=== PATIENT | male | born 1940 | race Caucasian/White ===

== ENCOUNTER 2016-10-18 12:45 | Inpatient (IN) | payer OTHER, BC ==
[2016-10-18 13:03] VITALS: BMI 28.9
--- NOTE | 2016-10-18 13:08 | PDOC ---
History of Present Illness - History of Present Illness Initial Comments: 10/18/16 14:06 The patient is a 76 year old male with a past medical history of HTN, HLD, colon CA s/p resection, presents to the emergency department with a complaint of right sided weakness since this morning. Patient last night had gone to bed in his usual state of health. This morning when the patient woke up he found weakness in his right arm and right leg. Patient had difficulty tieing his shoes , buttoning his shirt and reported very clumsy while walking. Patient had gone to [facility] and was referred to an Neurologist who refered the patient to the ED. Denies numbness or tingling. Denies dizziness, nausea or vomiting. Denies headache, double vision or blurry vision. Denies chest pain, shortness of breath , palpitations. Denies neck pain back pain. Denies abdominal pain, diarrhea , hematochezia or constipation. PMD: [facility]: Cell: <Vince Alvarado - Last Filed: 10/18/16 16:21> <Syed Pan - Last Filed: 10/21/16 19:37> - General Chief Complaint: Weakness Stated Complaint: WEAKNESS, PCP SENT Time Seen by Provider: 10/18/16 13:08 NIH Stroke Scale - Last Known Well Date/Time & Onset Date Last Known Well: 10/17/16 Time Last Known Well: 20:00 - Initial Evaluation Level of consciousness: Alert Ask patient the month and their age: Answers both correctly Ask patient to open & close eyes; make fist and let go: Obeys both correctly Best gaze (horizontal eye movement): Normal Visual field testing: No visual field loss Facial paresis (Show teeth/raise eyebrows/close eyes tight): Normal symmetrical movement Motor Function: Left Arm: Normal Motor Function: Right Arm: Normal (extends arm 90 (or 45) degrees for 10 seconds without drift Motor Function: Left Leg: Normal (extends leg 30 degrees for 5 seconds without drift) Motor Function: Right Leg: Normal (extends leg 30 degrees for 5 seconds without drift) Limb Ataxia: Present in one limb Sensory(Use pinprick test arms,legs,trunk,face/side to side): Normal Best language (Describe picture, name items, read sentences): No Aphasia Dysarthria (read several words): Normal articulation Extinction and Inattention: No abnormality - Total Score NIH Stroke Scale Score: 1 <Syed Pan - Last Filed: 10/21/16 19:37> tPA Exclusion Checklist 0-3hr - Time Elapsed Date last known well: 10/17/16 Time last known well: 20:00 Elaspsed time: 3 Day(s) and 23 Hour(s) and 35 Minutes - Thrombolytic Therapy Candidate Is the patient eligible for Thrombolytic Therapy?: No - Ineligibility reason(s) Reasons No tPA given: Outside of window - delayed arrival <Syed Pan - Last Filed: 10/21/16 19:37> Past History <Vince Alvarado - Last Filed: 10/18/16 16:21> - Past Medical History Cancer: Yes (COLON) HTN: Yes Hypercholesterolemia: Yes - Surgical History GI Surgery: Yes (PARTIAL COLON REMOVAL) - Psycho/Social/Smoking Cessation Hx Suicidal Ideation: No Smoking History: Never smoked <Syed Pan - Last Filed: 10/21/16 19:37> - Past Medical History Allergies/Adverse Reactions: Allergies Allergy/AdvReac Type Severity Reaction Status Date / Time No Known Allergies Allergy Verified 10/18/16 12:55 Home Medications: Ambulatory Orders Enalapril Maleate [Vasotec -] 10 mg PO DAILY 10/18/16 Review of Systems - Review of Systems Able to Perform ROS?: Yes Comments:: 10/18/16 14:06 CONSTITUTIONAL: No reported: Fever, Chills, Diaphoresis, Generalized Weakness, Malaise, Loss of Appetite HEENT: No reported: Rhinorrhea, Nasal Congestion, Throat Pain, Throat Swelling, Difficulty Swallowing, Mouth Swelling, Ear Pain, Eye Pain, Visual Changes CARDIOVASCULAR: No reported: Chest Pain, Syncope, Palpitations, Irregular Heart Rate, Lightheadedness, Peripheral Edema RESPIRATORY: No reported: Cough, Shortness of Breath, SOB with Exertion, Orthopnea, Wheezing , Stridor, Hemoptysis GASTROINTESTINAL: No reported: Abdominal pain, Abdominal Distension, Nausea, Vomiting, Diarrhea, Constipation, Melena, Hematochezia GENITOURINARY: No reported: Dysuria, Frequency, Urgency, Hesitancy, Flank Pain, Genital Pain MUSCULOSKELETAL: No reported: Myalgia, Arthralgia, Joint Swelling, Back pain, Neck Pain SKIN: No reported: Rash, Itching, Pallor HEMEATOLOGIC/IMMUNOLOGIC: No reported: Easy Bleeding, Easy Bruising, Lymphadenopathy, Frequent infections ENDOCRINE: No reported: Unexplained Weight Gain, Unexplained Weight Loss, Heat Intolerance , Cold Intolerance NEUROLOGIC: Reports: Right leg and arm weakness, Unsteady Gait No reported: Headache, Paresthesias, Vertigo, Lightheadedness, Seizure, Mental Status Changes, Incontinence PSYCHIATRIC: No reported: Anxiety, Depression <Vince Alvarado - Last Filed: 10/18/16 16:21> *Physical Exam - Vital Signs Last Vital Signs Temp Pulse Resp BP Pulse Ox 97.6 F 62 19 155/85 98 10/18/16 12:55 10/18/16 12:55 10/18/16 12:55 10/18/16 12:55 10/18/16 12:55 - Physical Exam Comments: 10/18/16 14:06 GENERAL: The patient is awake, alert, and fully oriented, Nontoxic - in no acute distress. HEAD: Normocephalic, atraumatic. EYES: extraocular movements intact, sclera anicteric, conjunctiva clear. ENT: Normal voice, Moist mucous membranes. Otis aid in L ear NECK: Normal range of motion, supple LUNGS: Breath sounds equal, clear to auscultation bilaterally. No wheezes, no rhonchi, no rales. HEART: Regular rate and rhythm, normal S1 and S2 without murmur, rub or gallop. ABDOMEN: Soft, nontender, normoactive bowel sounds. No guarding, no rebound. . No CVA tenderness EXTREMITIES: Normal range of motion, no edema. No clubbing or cyanosis. No cords, erythema, or tenderness. NEUROLOGICAL: No facial assymetry, Normal speech, PSYCH: Normal mood, normal affect. SKIN: Warm, Dry, normal turgor, NEURO: Mental status: The patient is oriented x3. Cranial nerves: Cranial nerves II through XII are intact Motor: The upper extremities are 5 over 5 in all muscle groups. The lower extremities are 5 over 5 in all muscle groups. Negative pronator drift Sensation: Sensation is intact to light touch throughout. romberg negative Cerebellar: [id number] is abnormal RUE extremities. [id number] is normal in both lower extremities. rapid alternating movements are abnormal on RUE, Reflexes: 2+ and symmetric in the upper and lower extremities. Gait: widebased gait. <Vince Alvarado - Last Filed: 10/18/16 16:21> - Vital Signs Last Vital Signs Temp Pulse Resp BP Pulse Ox 97.6 F 62 19 155/85 98 10/18/16 12:55 10/18/16 12:55 10/18/16 12:55 10/18/16 12:55 10/18/16 12:55 <Syed Pan - Last Filed: 10/21/16 19:37> Heart Score/ECG Review - ECG Impressions Comment:: 10/18/16 14:11 Twelve-lead EKG was performed and reviewed by me. There is normal sinus rhythm with a normal rate. rate of 69 Left axis deviation The intervals are normal. There are no ST or T wave abnormalities. <Syed Pan - Last Filed: 10/21/16 19:37> ED Treatment Course - LABORATORY CBC & Chemistry Diagram: 10/18/16 13:35 10/18/16 13:35 - ADDITIONAL ORDERS Additional order review: 10/18/16 13:35 RBC 5.06 MCV 89.7 MCHC 33.4 RDW 13.4 MPV 8.9 Neutrophils % 71.5 Lymphocytes % 16.3 Monocytes % 9.6 Eosinophils % 2.3 Basophils % 0.3 - RADIOLOGY Radiology Studies Ordered: 10/18/16 14:06 CHEST X RAY Impression: No acute Disease Reported by Qamar Ba HEAD CT Impression: Moderate atrophy and mild chronic microvascular ischemic changes with out evidence of acute intracranial pathology Reported by Frankie Miranda <Vince Alvarado - Last Filed: 10/18/16 16:21> - LABORATORY CBC & Chemistry Diagram: 10/19/16 05:35 10/19/16 05:35 <Syed Pan - Last Filed: 10/21/16 19:37> Medical Decision Making - Medical Decision Making 10/18/16 14:42 Neurology: Chidi Hernandez Office number called 14:42, will be paged PMD: [facility]: called 14:14, told he was in the hospital to over head page. Over head paged 14:45 PMD: [facility] R[facility] call back 14:45, case discussed. Neurology: Chidi Hernandez Office number called 15:13, will be paged Neurology: Lindsay Castillo returned call at 15:15, case discussed <Vince Alvarado - Last Filed: 10/18/16 16:21> - Medical Decision Making 10/18/16 14:12 76-year-old gentleman history of hypertension, colon cancer status post colon resection, presents with complaint of right-sided weakness upon awakening this morning - patient went to urgent care who directed them to the neurologist who sent him to the emergency department. The patient has no other complaints, on exam the patient's strength seems intact and symmetric however his fine motor skills seem abnormal with abnormal rapid alternating movements of the right hand as well as abnormal finger-nose in the right side, and he has a wide-based gait. Suspect possible cerebellar infarct The patient's CT of the head did not reveal anything acute. We'll give the patient aspirin We'll admit the patient further management of his symptoms and possible MRI. 10/18/16 14:41 labs unremarkble will admit for further management will page dr. rutherford 10/18/16 15:[address] rutherford - requested observation under hospitalist service. spoke to Veronica from Hospitalist service - agree with observation, under dr. doug ashraf. Case discussed in detail with admitting physician including history, physical exam and ancillary studies. Admitting physician has assumed care for the patient, will follow all pending diagnostics and will complete the evaluation and treatment. 10/18/16 15:[address] Pittman agree with management rewquested giving the aptient some asa and liptor MRI ordered <Syed Pan - Last Filed: 10/21/16 19:37> *DC/Admit/Observation/Transfer - Attestations Scribe Attestion: 10/18/16 16:23 Documentation prepared by Vince Alvarado, acting as medical office supervisor for Syed Pan MD <Vince Alvarado - Last Filed: 10/18/16 16:21> - Discharge Dispostion Admit: Yes <Syed Pan - Last Filed: 10/21/16 19:37> Diagnosis at time of Disposition: Right arm weakness - Referrals
[2016-10-18 13:48] LABS: BASOPHIL 0.3 % (0-2.0); EOSINOPHIL 2.3 % (0-4.5); MCH 29.9 pg (25.7-33.7); MCHC 33.4 g/dl (32.0-35.9); MEAN CELL VOLUME 89.7 fl (80-96); MEAN PLT VOLUME 8.9 fl (7.5-11.1); NEUTROPHILS 71.5 % (42.8-82.8); PLATELET COUNT 158 K/MM3 (134-434); RDW 13.4 % (11.9-15.9); WHITE BLOOD COUNT 7.6 K/mm3 (4.0-10.0)
[2016-10-18] MEDS ORDERED: ASPIRIN 81 MG CHEWABLE TABLETS PO ONE ×2 (14:13→14:14)
[2016-10-18 14:14] LABS: ALBUMIN 3.9 g/dl (3.4-5.0); ANION GAP 9 (8-16); CO2 28 mmol/L (21-32); GLUCOSE,RANDOM 97 mg/dL (74-106)
[2016-10-18] MEDS ORDERED: ASPIRIN 81 MG CHEWABLE TABLETS ONE (14:15)
[2016-10-18] MEDS: ASPIRIN 81 MG CHEWABLE TABLETS PO ONE ×2 (14:22→14:23)
[2016-10-18 14:23] LABS: INR 1.09 (0.82-1.09)
[2016-10-18 14:26] LABS: ALK PHOS 90 U/L (45-117); BILIRUBIN,TOTAL 0.9 mg/dL (0.2-1.0); CREATININE 1.1 mg/dL (0.7-1.3); SGOT/AST 17 U/L (15-37); SGPT/ALT 23 U/L (12-78); TOT PROT 7.3 g/dl (6.4-8.2); TROPONIN I < 0.02 ng/ml (0.00-0.05)
--- NOTE | 2016-10-18 14:34 | EKG ---
Test Reason : Blood Pressure : / mmHG Vent. Rate : 076 BPM Atrial Rate : 076 BPM P-R Int : 154 ms QRS Dur : 090 ms QT Int : 396 ms P-R-T Axes : 050 -69 037 degrees QTc Int : 445 ms NORMAL SINUS RHYTHM WITH SINUS ARRHYTHMIA LEFT AXIS DEVIATION ABNORMAL ECG WHEN COMPARED WITH ECG OF 27-APR-2010 09:15, NO SIGNIFICANT CHANGE WAS FOUND Confirmed by KELSEY WHITE MD ([id number]) on 10/18/2016 2:33:57 PM Referred By: Confirmed By:KELSEY WHITE MD
[2016-10-18 14:40] LABS: URINE APPEARANCE CLEAR; URINE BILIRUBIN NEGATIVE (NEGATIVE); URINE BLOOD NEGATIVE (NEGATIVE); URINE COLOR YELLOW; URINE GLUCOSE (UA) NEGATIVE (NEGATIVE); URINE KETONE NEGATIVE (NEGATIVE); URINE LEUK ESTERASE NEGATIVE (NEGATIVE); URINE NITRITE NEGATIVE (NEGATIVE); URINE PROTEIN NEGATIVE (NEGATIVE); URINE UROBILINOGEN NEGATIVE E.U./dl (0.2-1.0)
[2016-10-18] MEDS ORDERED: ATORVASTATIN CA 40 MG TABLET (FP) PO ONE (15:15)
[2016-10-18] MEDS ORDERED: ATORVASTATIN CA 40 MG TABLET (FP) ONE (15:26)
[2016-10-18] MEDS ORDERED: ONDANSETRON 4 MG/2 ML VIAL IVPB PRN (16:11)
[2016-10-18] MEDS ORDERED: ACETAMINOPHEN 325 MG TABLET (FP) PO PRN (16:11)
[2016-10-18 16:41] LABS: CHOLESTEROL 172 mg/dL (50-200); LDL CHOLESTEROL (ONLY SJRH) 108 mg/dL (5-100)
--- NOTE | 2016-10-18 17:41 | HP ---
CHIEF COMPLAINT: Right sided weakness PCP: Dr. Rutherford HISTORY OF PRESENT ILLNESS: Mr. Hirsch is a 76 y/o male pt with a PMH of HTN who presents to the ED today complaining of right sided numbness and weakness since this morning. Pt. states that he was not experiencing these symptoms before he went to bed last night at approximately 00:00 10/18/16. When he woke up at 07:30, he noticed weakness in his right arm and leg. He reports that he feels unsteady on his feet because of his R lower leg weakness. He also states he is "having trouble holding onto things with his right hand". Pt. denies pain in his R arm or leg. Pt. denies previous stroke history. Pt. denies dizziness, light headedness, LOC, chest pain, palpitations, SOB, N/V/D. Pt. presents to the ED for further evaluation. ER course was notable for: (1) Negative CT scan; MRI ordered to r/o cerebellar stroke (2) EKG shows normal sinus rhythm with a regular rate, left axis deviation. No acute ischemic changes (3) LDL of 108, HDL 45, Triglyceride 278 (4) Troponin negative (5) NIHSS 1 during ED course. 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 He lives at home with his . Family History: Father: "Renal disease" Mother: "Peripheral arterial sclerosis" Allergies No Known Allergies Allergy (Verified 10/18/16 12:55) HOME MEDICATIONS: Home Medications Medication Instructions Recorded Enalapril Maleate [Vasotec -] 10 mg PO DAILY 10/18/16 REVIEW OF SYSTEMS CONSTITUTIONAL: Absent: fever, chills, diaphoresis, generalized weakness, malaise, loss of appetite, weight change HEENT: Absent: rhinorrhea, nasal congestion, throat pain, throat swelling, difficulty swallowing, mouth swelling, ear pain, eye pain, visual changes CARDIOVASCULAR: Absent: chest pain, syncope, palpitations, irregular heart rate, lightheadedness , peripheral edema RESPIRATORY: Absent: cough, shortness of breath, dyspnea with exertion, orthopnea, wheezing, stridor, hemoptysis GASTROINTESTINAL: Absent: abdominal pain, abdominal distension, nausea, vomiting, diarrhea, constipation, melena, hematochezia GENITOURINARY: Absent: dysuria, frequency, urgency, hesitancy, hematuria, flank pain, genital pain MUSCULOSKELETAL: Absent: myalgia, arthralgia, joint swelling, back pain, neck pain SKIN: Absent: rash, itching, pallor HEMATOLOGIC/IMMUNOLOGIC: Absent: easy bleeding, easy bruising, lymphadenopathy, frequent infections ENDOCRINE: Absent: unexplained weight gain, unexplained weight loss, heat intolerance, cold intolerance NEUROLOGIC: Present: RUE and RLE weakness and paresthesias, unsteady gait Absent: headache, dizziness, seizure, mental status changes, bladder or bowel incontinence PSYCHIATRIC: Absent: anxiety, depression, suicidal or homicidal ideation, hallucinations. PHYSICAL EXAMINATION GENERAL: Awake, alert, and fully oriented to person place and time, in no acute distress, sitting on the hospital bed; not using accessory muscles to breathe. HEAD: Normal with no signs of trauma. EYES: Pupils equal, round and reactive to light, extraocular movements intact, sclera anicteric, conjunctiva clear. No lid lag. EARS, NOSE, THROAT: Pt. 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 Ears normal, nares patent, oropharynx clear without exudates. Moist mucous membranes. NECK: Normal range of motion, supple without lymphadenopathy, JVD, or masses. LUNGS: Breath sounds equal, clear to auscultation bilaterally. No wheezes, and no crackles. No accessory muscle use. HEART: Regular rate and rhythm, normal S1 and S2 without murmur, rub or gallop. ABDOMEN: Midline surgical scar present. Soft, nontender, not distended, normoactive bowel sounds, no guarding, no rebound, no masses. No hepatomegaly or splenomegaly. MUSCULOSKELETAL: Normal range of motion at all joints. No bony deformities or tenderness. No CVA tenderness. UPPER EXTREMITIES: 2+ pulses, warm, well-perfused. No cyanosis. No clubbing. Cap refill <2 seconds. No peripheral edema. LOWER EXTREMITIES: 2+ pulses, warm, well-perfused. No calf tenderness. No peripheral edema. NEUROLOGICAL: (+) ataxia of the R arm. (+) dysdiadochokinesia of the right hand. Road Monkey strength 4/5 on the R, 5/5 on the left. Cranial nerves II-XII intact. (-) aphasia, (-) dysmetria. Gait not observed. RUE strength 5/5 B/L, RLE 5/5 B/L. Patellar reflexes are 2+. Sensation intact on the face and arms B/ L. PSYCHIATRIC: Cooperative. Good eye contact. Appropriate mood and affect. SKIN: Warm, dry, normal turgor, no rashes or lesions noted. Laboratory Results - last 24 hr 10/18/16 16:06 Triglycerides Cancelled Cholesterol Cancelled Total LDL Cholesterol Cancelled HDL Cholesterol Cancelled ASSESSMENT/PLAN: Problem List - Problem (1) Acute ischemic stroke Assessment/Plan: Pt. presents with new R arm weakness and dysdiadochokinesia; initial head CT is negative for stroke. MRI shows multiple acute strokes. Will make pt. a full admit. 1. MRI results: 1.1 cm acute non-hemorrhagic infarct seen with in the left posterior frontal lobe adjacent to and possibly involving the cortex Other findings include numerous bilateral cerebral punctate hemosiderin foci are seen consistent with chronic microbleeds. The majority of these chronic microbleeds are seen adjacent to the corticomedullary junction. there are several chronic microbleeds within the left thalamus and right basis pontis. This finding is better appreciated on the previous exam which included susceptibility weighted imaging. Case discused with Dr. Pittman. Agrees with restarting ASA 81mg even with report of microbleeds. Pt. is not a candidate for tPA at this time given his last known well is outside the 3-4.5 hour yadi. 2. Carotid US performed. Awaiting results 3. Neurology consulted. 4. Speech consult ordered; bedside swallow test was performed and pt. passed. 5. PT consult 6. Monitor on telemetry 7. Echocardiogram to be performed tomorrow. 8. Chemical DVT prophylaxis to start tomorrow. SCD's applied today 9. Full admit Code(s): I63.9 - CEREBRAL INFARCTION, UNSPECIFIED (2) HTN (hypertension) Assessment/Plan: Permissive HTN d/t ischemic stroke. Continue to monitor Continue with Enalapril Code(s): I10 - ESSENTIAL (PRIMARY) HYPERTENSION (3) Dyslipidemia Assessment/Plan: Pts. LDL's are slightly elevated. Given presenting symptoms will continue with atorvastatin. Low cholesterol/sodium diet Code(s): E78.5 - HYPERLIPIDEMIA, UNSPECIFIED (4) DVT prophylaxis Assessment/Plan: Chemical prophylaxis to start tomorrow. SCD's placed on pt. Code(s): OEX8159 - Visit type - Emergency Visit Emergency Visit: Yes ED Registration Date: 10/18/16 Care time: The patient presented to the Emergency Department on the above date and was hospitalized for further evaluation of their emergent condition. - New Patient This patient is new to me today: Yes Date on this admission: 10/18/16 - Critical Care Critical Care patient: No NIH Stroke Scale - Last Known Well Date/Time & Onset Date Last Known Well: 10/18/16 Time Last Known Well: 00:00 - Initial Evaluation Level of consciousness: Alert Ask patient the month and their age: Answers both correctly Ask patient to open & close eyes; make fist and let go: Obeys both correctly Best gaze (horizontal eye movement): Normal Visual field testing: No visual field loss Facial paresis (Show teeth/raise eyebrows/close eyes tight): Normal symmetrical movement Motor Function: Left Arm: Normal Motor Function: Right Arm: Normal (extends arm 90 (or 45) degrees for 10 seconds without drift Motor Function: Left Leg: Normal (extends leg 30 degrees for 5 seconds without drift) Motor Function: Right Leg: Normal (extends leg 30 degrees for 5 seconds without drift) Limb Ataxia: Present in one limb Sensory(Use pinprick test arms,legs,trunk,face/side to side): Normal Best language (Describe picture, name items, read sentences): No Aphasia Dysarthria (read several words): Normal articulation Extinction and Inattention: No abnormality - Total Score NIH Stroke Scale Score: 1
[2016-10-18] MEDS: DOCUSATE SODIUM 100 MG CAPSULE (FP) PO SCH (22:19)
[2016-10-19 07:02] LABS: BASOPHIL 0.2 % (0-2.0); MCHC 33.5 g/dl (32.0-35.9); MEAN CELL VOLUME 89.5 fl (80-96); MEAN PLT VOLUME 9.4 fl (7.5-11.1); NEUTROPHILS 64.9 % (42.8-82.8); PLATELET COUNT 150 K/MM3 (134-434); RDW 13.4 % (11.9-15.9); WHITE BLOOD COUNT 7.1 K/mm3 (4.0-10.0)
[2016-10-19 07:08] LABS: INR 1.1 (0.82-1.09); PROTHROMBIN TIME (PATIENT) 12.1 SEC (9.98-11.88)
[2016-10-19 07:46] LABS: ALBUMIN 3.7 g/dl (3.4-5.0); ALK PHOS 91 U/L (45-117); ANION GAP 10 (8-16); BILIRUBIN,TOTAL 1.2 mg/dL (0.2-1.0); CALCIUM 8.6 mg/dL (8.5-10.1); CO2 27 mmol/L (21-32); GLUCOSE,RANDOM 88 mg/dL (74-106); MAGNESIUM 2.2 mg/dL (1.8-2.4); SGOT/AST 18 U/L (15-37); SGPT/ALT 22 U/L (12-78); THYROID STIMULATING HORMONE 2.15 uIU/ml (0.358-3.74); TOT PROT 6.9 g/dl (6.4-8.2); TROPONIN I < 0.02 ng/ml (0.00-0.05)
[2016-10-19] MEDS: DOCUSATE SODIUM 100 MG CAPSULE (FP) PO SCH ×2 (09:17→22:16)
[2016-10-19] MEDS: ASPIRIN COATED 81 MG TABLET.EC PO SCH (09:18)
[2016-10-19] MEDS: ENALAPRIL MALEATE 10 MG TABLET (FP) PO SCH (09:18)
[2016-10-19] MEDS ORDERED: SODIUM CHLORIDE 1,000 ML IV STA (10:57)
--- NOTE | 2016-10-19 11:58 | CONSULT ---
Admitting History and Physical - Primary Care Physician PCP: Margaret Constantino - Admission History of Present Illness: New onset right sided weakness. History Source: Patient Limitations to Obtaining History: No Limitations - Smoking History Smoking history: Never smoked History - Admission Reason For Visit: WEAKNESS OF RIGHT UPPER EXTREMITY - Diagnostics X-ray: Report Reviewed CT Scan: Report Reviewed MRI: Report Reviewed - General Mental Status: Alert and Oriented, Awake and Alert, Able to Follow Commands Attention: Intact Ability to Follow Directions: Excellent Head/Neck Control: WFL - Hearing Hearing: Impaired, Both Hearing Aide: Yes With Patient: Yes Speech Evaluation - Communication Primary Language: [place] Oral Expression Ability: Yes: Mild Impairment - Speech Production Able to Make Needs Known: Yes: Mildly Impaired Intelligibility: Yes: WNL - Speech Characteristics Voice Loudness: Normal Voice Pitch: Yes: Normal Voice Phonatory-based Quality: Yes: Normal Speech Pattern: Normal Speech Clarity: < 100% Nasal Resonance: Normal Articulation: Yes: Precise - Language/Auditory Comprehension Follows: Yes: Complex Commands - Language/Verbal Expression Aphasia: Yes: Anomia (occasional) Able to Respond to Simple Queries: Yes: WNL Able to Communicate Wants and Needs: Yes: WNL Functional Communication Status: Yes: WNL - Memory/Perception MCFP Memory: Yes: WNL Short Term Memory: Yes: WNL - Swallow Evaluation/Bedside Assessment Current Nutritional Intake: Regular, Thin Liquids Oral Secretions: Yes: WFL Dentition: Yes: Adequate Facial Symmetry at Rest: Symmetrical Facial Symmetry on Retraction: Symmetrical Facial Movement: Controlled Sensation: Normal Against Resistance Opening: Normal Against Resistance Closing: Normal Pucker Lips: Normal Smile: Normal Lingual Movement: Normal Lingual Speed of Movement: Normal Lingual Movement Strgth Against Opposition: Normal Lingual Movement Characteristics: Normal Velopharyngeal Movement: Normal Laryngeal Elevation: WFL Laryngeal Movement: Able to Palpate Rate of Intake: WFL Bolus Size: WFL Labial Seal: WFL Chewing: WFL Oral Prep Time: WFL A-P Transit: WFL Pocketing: None Timing of Swallow: WFL Coughing/Throat Clear: No Change in Voice: No Recommendations - Speech Evaluation, Impression/Plan Impression: Mild hesitancy in word retrieval in propositional speech. O x 3. WExcellent auditory comprehension. Cognition grossly intact. Swallowing intact. - Disposition [facility] to[facility] (Excellent [facility] - Dysphagia Impressions/Plan Swallowing Skills: WFL Dysphagia Impressions: No Impairment *Silent aspiration: cannot be R/O at bedside - Recommendations Diet Consistency: Regular Medication Administration: Whole with water Liquids: Thin Liquids
--- NOTE | 2016-10-19 14:10 | PN ---
Physical Exam: SUBJECTIVE: Patient seen and examined at bedside. 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 He states that his leg feels the same. States that PT has been by to see him. OBJECTIVE: GENERAL: The patient is awake, alert, and fully oriented to person, place and time, in no acute distress. No use of accessory muscles to breathe. HEAD: Normal with no signs of trauma. EYES: PERRL, extraocular movements intact, sclera anicteric, conjunctiva clear. No ptosis. ENT: Hearing aids in place b/l. Ears normal, nares patent, oropharynx clear without exudates, moist mucous membranes. NECK: Trachea midline, full range of motion, supple. LUNGS: Breath sounds equal, clear to auscultation bilaterally, no wheezes, no crackles, no accessory muscle use. HEART: Regular rate and rhythm, S1, S2 without murmur, rub or gallop. ABDOMEN: Soft, nontender, nondistended, normoactive bowel sounds, no guarding, no rebound, no hepatosplenomegaly, no masses. EXTREMITIES: R hand mild swelling noted. 2+ pulses (radial and brachial). Warm, well-perfused. NEUROLOGICAL: (+) R arm ataxia. (+) dysdiadochokineasea. Office Admin strength R hand 1/ 5, L hand 5/5. Cranial nerves II through XII grossly intact. Normal speech, gait not observed. Sensation grossly intact b/l, patallar reflex 2+ b/l. PSYCH: Normal mood, normal affect. SKIN: Warm, dry, normal turgor, no rashes or lesions noted Active Medications Generic Name Dose Route Start Last Admin Trade Name Freq PRN Reason Stop Dose Admin Acetaminophen 650 mg 10/18/16 16:11 Tylenol - PO Q6H PRN FEVER OR PAIN Aspirin 81 mg 10/19/16 10:00 10/19/16 09:18 Ecotrin - PO 81 mg DAILY KATHERINE Administration Atorvastatin Calcium 40 mg 10/19/16 22:00 Lipitor - PO HS KATHERINE Docusate Sodium 100 mg 10/18/16 22:00 10/19/16 09:17 Colace - PO 100 mg BID KATHERINE Administration Enalapril Maleate 10 mg 10/19/16 10:00 10/19/16 09:18 Vasotec - PO 10 mg DAILY KATHERINE Administration Ondansetron HCl 4 mg 10/18/16 16:11 Zofran Injection IVPB Q6H PRN NAUSEA Imaging: CT Head (10/18/16): Moderate atrophy and mild chronic microvascular changes. No evidence of acute intracranial pathology. Correlate clinically. MRI Head (10/18/16): 1.1 cm acute non-hemorrhagic infarct seen with in the left posterior frontal lobe adjacent to and possibly involving the cortex.Other findings include numerous bilateral cerebral punctate hemosiderin foci are seen consistent with chronic microbleeds. The majority of these chronic microbleeds are seen adjacent to the corticomedullary junction. there are several chronic microbleeds within the left thalamus and right basis pontis. This finding is better appreciated on the previous exam which included susceptibility weighted imaging. Carotid US (10/18/16): No evidence of high grade carotid artery stenosis. Mild plaque formation at the level of the carotid artery bifurcations and common carotids. ASSESSMENT/PLAN: Pt. is a 76 y/o male with a PMH of HTN, HLD, Colon Cx s/p colectomy 2006, admitted with acute ischemic stroke of the left posterior frontal lobe. 1. Acute ischemic stroke: -- Pt. was not a candidate for tPA as given his last known well was outside the 3-4.5 hour yadi upon arrival to the ED. -- R arm weakness and dysdiadochokinesia worse compared to yesterday. 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 Will monitor. -- Chronic microbleeds seen on MRI. -- Echo results pending. -- Neurology consulted: case discussed with Dr. Pittman. Agrees with restarting ASA 81mg even with report of microbleeds. -- Speech consult appreciated: No swallow deficit, full diet and thin liquids. -- PT following. 2. HTN: -- Permissive HTN d/t ischemic stroke. Goal 150mmHg-180mmHg systolic per neurology. Continue to monitor. -- Continue with Enalapril. 3. Dyslipidemia: -- Pts. LDL's are slightly elevated. -- Given presenting symptoms will continue with atorvastatin. 4. Hx. of Colon Cx s/p colectomy 2006: -- Pt. is non-compliant with his regular follow up for management of his colon cancer history. -- Consult Dr. De La Rosa, oncology. -- Given uncertain nature of this pts stroke and poor compliance, will order CT scan of abdomen to look for mets when pt. is stable 5. DVT prophylaxis -- Lovenox 40 sq. SCD's placed on pt. F/E/N -- PO Fluids as tolerated -- Replete electrolytes as needed -- Low sodium, low cholesterol diet. Dispo: The case was discussed with Dr. Rutherford who will be taking over patient care. Hospitalist group signing off of the case. Please call if needing further assistance. --Pt. requires inpatient status. Full code Problem List - Problems (1) Acute ischemic stroke Code(s): I63.9 - CEREBRAL INFARCTION, UNSPECIFIED (2) HTN (hypertension) Code(s): I10 - ESSENTIAL (PRIMARY) HYPERTENSION (3) Dyslipidemia Code(s): E78.5 - HYPERLIPIDEMIA, UNSPECIFIED (4) DVT prophylaxis Code(s): ZCX4086 - Visit type - Emergency Visit Emergency Visit: Yes ED Registration Date: 10/19/16 Care time: The patient presented to the Emergency Department on the above date and was hospitalized for further evaluation of their emergent condition. - New Patient This patient is new to me today: No - Critical Care Critical Care patient: No - Discharge Referral Referred to [facility] Med P.C.: No
--- NOTE | 2016-10-19 15:11 | CON.NEURO ---
Consult Consult Specialty:: NEUROLOGY Reason for Consultation:: right side weakness - History of Present Illness History of Present Illness: 76 y/o male pt with a PMH of HTN who presents to the ED yesterday for right sided numbness and weakness since he woke up yesterday morning. Pt. states that he was not experiencing these symptoms before he went to bed last night at approximately 00:00 10/18/16. When he woke up at 07:30, he noticed weakness in his right arm and leg. Pt. denies previous stroke history. He is not on asa, plavix or other blood thinner. Pt. denies dizziness, light headeness, LOC, chest pain, palpitations, SOB. - History Source History Provided By: Patient, Medical Record Limitations to Obtaining History: No Limitations - Past Medical History Cardio/Vascular: Yes: HTN - Smoking History Smoking history: Never smoked - Social History Usual Living Arrangement: With Spouse Place of : [facility] History of Recent Travel: No Home Medications - Allergies Allergies/Adverse Reactions: Allergies Allergy/AdvReac Type Severity Reaction Status Date / Time No Known Allergies Allergy Verified 10/18/16 12:55 - Home Medications Home Medications: Ambulatory Orders Enalapril Maleate [Vasotec -] 10 mg PO DAILY 10/18/16 Review of Systems - Review of Systems Constitutional: reports: No Symptoms Eyes: reports: No Symptoms HENT: reports: No Symptoms Neck: reports: No Symptoms Cardiovascular: reports: No Symptoms Respiratory: reports: No Symptoms Gastrointestinal: reports: No Symptoms Genitourinary: reports: No Symptoms Neurological: reports: Pre-Existing Deficit (hearing decreased - device ear) Endocrine: reports: No Symptoms Hematology/Lymphatic: reports: No Symptoms Psychiatric: reports: No Symptoms Physical Exam-Neuro Vital Signs: Vital Signs Temperature 97.7 F 10/19/16 13:25 Pulse Rate 79 10/19/16 13:25 Respiratory Rate 20 10/19/16 13:25 Blood Pressure 153/81 10/19/16 13:25 O2 Sat by Pulse Oximetry (%) 98 10/19/16 08:00 Constitutional: Yes: No Distress, Calm Neck: Yes: Supple, Trachea Midline Cardiovascular: Yes: Regular Rate and Rhythm, S1, S2 Respiratory: Yes: Regular, CTA Bilaterally Gastrointestinal: Yes: Normal Bowel Sounds, Soft Renal/: Yes: WNL Musculoskeletal: Yes: WNL, Muscle Weakness Edema: No Psychiatric: Yes: Alert, Oriented Labs: INR, PTT INR 1.10 (0.82-1.09) 10/19/16 05:35 - Neuro Exam Level Of Consciousness: Yes: Oriented to Person, Oriented to Place, Oriented to Time Eyes: Yes: PERRLA Dominant Hand: Right Cranial Nerves II-XII Intact: Yes Gag: Present DTR's: 1+ Left Bicep, 1+ Right Bicep, 1+ Left Tricep, 1+ Right Tricep, 1+ Left Brachioradialis, 1+ Right Brachioradialis, 1+ Left Achilles, 1+ Right Achilles Babinski: Absent Response to light touch: Normal Response to pain prick: Normal Response to temperature: Normal Response to vibration: Normal Coordination: Normal: Finger to Nose (ataxia) Motor Strength: 3/5: Right Arm, 5/5: Right Leg, Left Leg, Left Arm (NIHS is 6p. 2p. RUE weakness. 1p RUE ataxia. 1p. RLE drift, 1pRLE ataxia. 1p dysarthria. mild) Gait: Ataxia Imaging - Results Cat Scan: Report Reviewed, Image Reviewed MRI: Report Reviewed, Image Reviewed Problem List - Problems (1) Acute ischemic stroke Code(s): I63.9 - CEREBRAL INFARCTION, UNSPECIFIED (2) Hemiparesis affecting dominant side as late effect of cerebrovascular accident Code(s): I69.359 - HEMIPLGA FOLLOWING CEREBRAL INFARCTION AFFECTING UNSP SIDE (3) Hemiparesis affecting right side as late effect of cerebrovascular accident Code(s): I69.351 - HEMIPLGA FOLLOWING CEREBRAL INFRC AFF RIGHT DOMINANT SIDE (4) Hemiparesis, acute Code(s): G81.90 - HEMIPLEGIA, UNSPECIFIED AFFECTING UNSPECIFIED SIDE (5) Ataxia following cerebral infarction Code(s): I69.393 - ATAXIA FOLLOWING CEREBRAL INFARCTION Assessment/Plan 76 y/o male pt with a PMH of HTN who presents to the ED yesterday for right sided numbness and weakness since he woke up yesterday morning. Pt. states that he was not experiencing these symptoms before he went to bed last night at approximately 00:00 10/18/16. When he woke up at 07:30, he noticed weakness in his right arm and leg. Pt. denies previous stroke history. He is not on asa, plavix or other blood thinner. Pt. denies dizziness, light headeness, LOC, chest pain, palpitations, SOB. MRI brain shows acute ischemic stroke and few microbleeds. Impression: acute ischemic stroke. Plan: - the patient was not a candidate for ivtpa as he was outside of the window. He woke up with the symptoms. LSN was the night before. He was not taking asa daily. - start ASA , statin, blood pressure permissive 150-180mmHG. for three days. - stroke work up : doppler carotids, lipids profile, echocardiogram, TSH, HBA1C. - he was started on ASA. As there are few small microbleeds read by radiologist on MRI brain ( which seems to be same or less than on the previous MRI ) we continue baby ASA 81mg. po daily and repeat MRI brain in two months. -PT/OT/ST - DVT prophylaxis- heparin or lovenox sq. Will follow Thank you for this kind referral.
--- NOTE | 2016-10-19 16:08 | PN ---
Progress Note (short form) - Note Progress Note: MEDICAL ATTENDING ALL NOTES REVIEWED GREATLY APPRECIATE HOSPITALIST INITIAL NOTES I WILL ASSUME RESPONSIBILITY FOR THE CARE OF THIS PATIENT VSS/AFEBRILE ANICTERIC/ALERT ORIENTED CHEST CLEAR S1S2 BS+ SOFT NO EDEMA/RIGHT UPPER EXT 2/4 MOTOR LABS/MEDS/IMAGING/NOTES REVIEWED ACUTE NONHEMORRHAGIC LEFT POSTERIOR FRONTAL INFARCT H/O COLON CA IN PAST/NONCOMPLIANT WITH F/U THREE AFFILIATED HTN/HLD PLACED ON ASA/STATIN/DVT PROPHYLAXSIS CHECK LIPIDS/CAROTIDS/ECHO/TSH/A1C WILL HOLD ON FURTHER WORKUP UNTILL PATIENT STABILIZES hCris HAQ MD
[2016-10-19] MEDS: ATORVASTATIN CA 40 MG TABLET (FP) PO SCH (22:16)
[2016-10-19] MEDS: HEPARIN NA (PORCINE) 5,000 UNITS/ML 1ML VIAL SQ SCH (22:16)
--- NOTE | 2016-10-19 22:24 | CONSULT ---
Consult - text type - Consultation Consultation Note: Patient seen and examined 76 y/o male pt with a PMH of HTN who presents to the ED yesterday for right sided numbness and weakness/ When he woke up at 07:30, he noticed weakness in his right arm and leg. Pt. denies previous stroke history. - History Source History Provided By: Patient, Medical Record Limitations to Obtaining History: No Limitations - Past Medical History Cardio/Vascular: Yes: HTN Colon cancer - Smoking History Smoking history: Never smoked - Social History Usual Living Arrangement: With Spouse Place of : [facility] Home Medications - Allergies Allergies/Adverse Reactions: Allergies Allergy/AdvReac Type Severity Reaction Status Date / Time No Known Allergies Allergy Verified 10/18/16 12:55 - Home Medications Home Medications: Ambulatory Orders Enalapril Maleate [Vasotec -] 10 mg PO DAILY 10/18/16 Current Medications Acetaminophen (Tylenol -) 650 mg PO Q6H PRN PRN Reason: FEVER OR PAIN Aspirin (Ecotrin -) 81 mg PO DAILY [facility] Last Admin: 10/20/16 09:48 Dose: 81 mg Atorvastatin Calcium (Lipitor -) 40 mg PO HS [facility] Last Admin: 10/19/16 22:16 Dose: 40 mg Docusate Sodium (Colace -) 100 mg PO BID [facility] Last Admin: 10/20/16 09:49 Dose: 100 mg Enalapril Maleate (Vasotec -) 10 mg PO DAILY [facility] Last Admin: 10/20/16 09:48 Dose: 10 mg Heparin Sodium (Porcine) (Heparin -) 5,000 unit SQ BID [facility] Last Admin: 10/20/16 09:48 Dose: 5,000 unit Ondansetron HCl (Zofran Injection) 4 mg IVPB Q6H PRN PRN Reason: NAUSEA Physical Exam-Neuro Vital Signs: Vital Signs Temperature 97.7 F 10/19/16 13:25 Pulse Rate 79 10/19/16 13:25 Respiratory Rate 20 10/19/16 13:25 Blood Pressure 153/81 10/19/16 13:25 O2 Sat by Pulse Oximetry (%) 98 10/19/16 08:00 Constitutional: Yes: No Distress, Calm Neck: Yes: Supple, Trachea Midline Cardiovascular: Yes: Regular Rate and Rhythm, S1, S2 Respiratory: Yes: Regular, CTA Bilaterally Gastrointestinal: Yes: Normal Bowel Sounds, Soft Neuro: rt. hemiparesis Imaging - Results Cat Scan: Report Reviewed, Image Reviewed MRI: Report Reviewed, Image Reviewed Problem List - Problems (1) Acute ischemic stroke Code(s): I63.9 - CEREBRAL INFARCTION, UNSPECIFIED (2) Hemiparesis affecting dominant side as late effect of cerebrovascular accident Code(s): I69.359 - HEMIPLGA FOLLOWING CEREBRAL INFARCTION AFFECTING UNSP SIDE (3) Hemiparesis affecting right side as late effect of cerebrovascular accident Code(s): I69.351 - HEMIPLGA FOLLOWING CEREBRAL INFRC AFF RIGHT DOMINANT SIDE (4) Hemiparesis, acute Code(s): G81.90 - HEMIPLEGIA, UNSPECIFIED AFFECTING UNSPECIFIED SIDE (5) Ataxia following cerebral infarction Code(s): I69.393 - ATAXIA FOLLOWING CEREBRAL INFARCTION Assessment/Plan 76 y/o male pt with a PMH of HTN who presents to the ED yesterday for right sided numbness and weakness since he woke up yesterday morning. MRI brain shows acute ischemic stroke and few microbleeds. 76 y/o with h/o colon cancer s/p adjuvant XELOX. Lost to f/u since 2011 , now with CVA with rt. hemiparesis for lal rehab will check CEA needs colonoscopy once recovers from stroke normal Hgb and LFTs
[2016-10-20] MEDS: ENALAPRIL MALEATE 10 MG TABLET (FP) PO SCH (09:48)
[2016-10-20] MEDS: ASPIRIN COATED 81 MG TABLET.EC PO SCH (09:48)
[2016-10-20] MEDS: HEPARIN NA (PORCINE) 5,000 UNITS/ML 1ML VIAL SQ SCH ×2 (09:48→21:54)
[2016-10-20] MEDS: DOCUSATE SODIUM 100 MG CAPSULE (FP) PO SCH ×2 (09:49→21:54)
--- NOTE | 2016-10-20 15:48 | PN ---
Progress Note, Physician History of Present Illness: 76 y/o male pt with a PMH of HTN who presents to the ED yesterday for right sided numbness and weakness since he woke up yesterday morning. Pt. states that he was not experiencing these symptoms before he went to bed last night at approximately 00:00 10/18/16. When he woke up at 07:30, he noticed weakness in his right arm and leg. Pt. denies previous stroke history. He is not on asa, plavix or other blood thinner. Pt. denies dizziness, light headeness, LOC, chest pain, palpitations, SOB. - Current Medication List Current Medications: Active Medications Acetaminophen (Tylenol -) 650 mg PO Q6H PRN PRN Reason: FEVER OR PAIN Aspirin (Ecotrin -) 81 mg PO DAILY [facility] Last Admin: 10/20/16 09:48 Dose: 81 mg Atorvastatin Calcium (Lipitor -) 40 mg PO HS [facility] Last Admin: 10/19/16 22:16 Dose: 40 mg Docusate Sodium (Colace -) 100 mg PO BID [facility] Last Admin: 10/20/16 09:49 Dose: 100 mg Enalapril Maleate (Vasotec -) 10 mg PO DAILY [facility] Last Admin: 10/20/16 09:48 Dose: 10 mg Heparin Sodium (Porcine) (Heparin -) 5,000 unit SQ BID [facility] Last Admin: 10/20/16 09:48 Dose: 5,000 unit Ondansetron HCl (Zofran Injection) 4 mg IVPB Q6H PRN PRN Reason: NAUSEA - Objective Vital Signs: Vital Signs Temperature 98.2 F 10/20/16 13:51 Pulse Rate 82 10/20/16 13:51 Respiratory Rate 18 10/20/16 13:51 Blood Pressure 142/75 10/20/16 13:51 O2 Sat by Pulse Oximetry (%) 95 10/20/16 08:00 Constitutional: Yes: No Distress, Calm Eyes: Yes: Conjunctiva Clear, EOM Intact HENT: Yes: Atraumatic, Normocephalic Neck: Yes: Supple, Trachea Midline Cardiovascular: Yes: Regular Rate and Rhythm, S1, S2 Respiratory: Yes: Regular, CTA Bilaterally Gastrointestinal: Yes: Normal Bowel Sounds, Soft Edema: Yes Edema: LLE: 1+, RLE: 1+ Peripheral Pulses WNL: Yes Neurological: Yes: Alert, Oriented, Cran Nerves II-XII Intact, Dysarthria, Unsteady Gait ...Motor Strength: LUE (5/5), LLE (5/5), RUE (2/5), RLE (4/5 NIHS is 6p= 2p RUE weakness. 1p RLE drift, 1p RLE ataxia. 1p RUE ataxia, 1pdysarthria.) Psychiatric: Yes: Alert, Oriented Labs: INR, PTT INR 1.10 (0.82-1.09) 10/19/16 05:35 - ....Imaging Ultrasound: Report Reviewed, Image Reviewed MRI: Report Reviewed, Image Reviewed Problem List - Problems (1) Acute ischemic stroke Code(s): I63.9 - CEREBRAL INFARCTION, UNSPECIFIED (2) Hemiparesis affecting dominant side as late effect of cerebrovascular accident Code(s): I69.359 - HEMIPLGA FOLLOWING CEREBRAL INFARCTION AFFECTING UNSP SIDE (3) Hemiparesis affecting right side as late effect of cerebrovascular accident Code(s): I69.351 - HEMIPLGA FOLLOWING CEREBRAL INFRC AFF RIGHT DOMINANT SIDE (4) Hemiparesis, acute Code(s): G81.90 - HEMIPLEGIA, UNSPECIFIED AFFECTING UNSPECIFIED SIDE (5) Ataxia following cerebral infarction Code(s): I69.393 - ATAXIA FOLLOWING CEREBRAL INFARCTION (6) 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 Pt. states that he was not experiencing these symptoms before he went to bed last night at approximately 00:00 10/18/16. When he woke up at 07:30, he noticed weakness in his right arm and leg. Pt. denies previous stroke history. He is not on asa, plavix or other blood thinner. Pt. denies dizziness, light headeness, LOC, chest pain, palpitations, SOB. MRI brain shows acute ischemic stroke and few microbleeds.- cerebral amyloidosis. Echocardiogram - suspicion mitral valve mass, vegetation. Impression: acute ischemic stroke. Plan: - the patient was not a candidate for ivtpa as he was outside of the window. He woke up with the symptoms. LSN was the night before. He was not taking asa daily. - ASA , statin, blood pressure permissive 150-180mmHG. for three days. - stroke work up : doppler carotids, lipids profile, echocardiogram, TSH, HBA1C. To do BETO , cardiology consult for suspicious mass /vegetation on the mitral valve seen on the echocardiogram - he was started on ASA. As there are few small microbleeds read by radiologist on MRI brain ( which seems to be same or less than on the previous MRI ) , suggestive of cerebral amyloidosis we continue baby ASA 81mg. po daily and repeat MRI brain in two months. -PT/OT/ST - DVT prophylaxis- heparin or lovenox sq. Will follow Thank you for this kind referral.
--- NOTE | 2016-10-20 17:42 | PN ---
Progress Note (short form) - Note Progress Note: MEDICAL ATTENDING ALL NOTES REVIEWED GREATLY APPRECIATE NEUROLOGY F/U ECHO NOTED POSSIBLE MITRAL VALVE VEGETATION/?LESION VSS/AFEBRILE ANICTERIC/ALERT ORIENTED CHEST CLEAR S1S2 BS+ SOFT NO EDEMA/RIGHT UPPER EXT 2/4 MOTOR LABS/MEDS/IMAGING/NOTES REVIEWED ACUTE NONHEMORRHAGIC LEFT POSTERIOR FRONTAL INFARCT H/O COLON CA IN PAST/NONCOMPLIANT WITH F/U [place] HTN/HLD PLACED ON ASA/STATIN/DVT PROPHYLAXSIS HAVE ASKED CARDIOLOGY TO EVALUATE FOR BETO WILL KEEP NPO EXCEPT FOR MEDS AFTER MIDNIGHT Chris HAQ MD
[2016-10-20] MEDS: ATORVASTATIN CA 40 MG TABLET (FP) PO SCH (21:54)
[2016-10-21] MEDS: ASPIRIN COATED 81 MG TABLET.EC PO SCH (09:45)
[2016-10-21] MEDS: DOCUSATE SODIUM 100 MG CAPSULE (FP) PO SCH ×2 (09:45→21:35)
[2016-10-21] MEDS: ENALAPRIL MALEATE 10 MG TABLET (FP) PO SCH (09:45)
--- NOTE | 2016-10-21 10:39 | PN ---
Progress Note, GRAPE GROWER - Note Progress Note: Mild hesitation during propositionbal speech, improving since yesterday. Pt denies speech deficits. Pt's felt there was more hesitation during sp/ lang evaluation. No word/grammatic errors, although some hesitation in word retrieval and fluency of speech. Tolerating diet without signs or symptoms of dysphagia. Excellent candidate for rehabilitation. Cognitively good and motivated for recovery. Selected Entries 10/20/16 10/20/16 10/20/16 02:00 06:00 09:00 Breakfast Lunch Supper Temperature 98.2 F 98.2 F 98 F 10/20/16 10/20/16 10/20/16 13:51 18:00 22:00 Breakfast 75% Lunch 100% Supper 75% Temperature 98.2 F 97.7 F 98.2 F 10/21/16 10/21/16 10/21/16 02:00 06:00 09:54 Breakfast Lunch Supper Temperature 98.1 F 98.3 F 98 F
--- NOTE | 2016-10-21 10:58 | CON.CARD ---
Consult Consult Specialty:: Cardiology Referred by:: Venu Rutherford MD Reason for Consultation:: Stroke - History of Present Illness Chief Complaint: Right sided weakness History of Present Illness: Mr. 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 HCT negative, brain MRI shows acute non-hemorrhagic left posterior frontal infarct, chronic thalamic infarct, numerous chronic microbleeds involving cerebral hemisphere, left thalamus, right mohsen suspicion of cerebral amyloid angiopathy, currently still with right-sided weakness, denies chest pain , near or true syncope, palpitations, orthopnea, PND or LE edema. - History Source History Provided By: Patient Limitations to Obtaining History: No Limitations - Past Medical History Cardio/Vascular: Yes: HTN - Smoking History Smoking history: Never smoked - Social History Usual Living Arrangement: With Spouse History of Recent Travel: No Home Medications - Allergies Allergies/Adverse Reactions: Allergies Allergy/AdvReac Type Severity Reaction Status Date / Time No Known Allergies Allergy Verified 10/18/16 12:55 - Home Medications Home Medications: Ambulatory Orders Enalapril Maleate [Vasotec -] 10 mg PO DAILY 10/18/16 Review of Systems - Review of Systems Neurological: reports: Unsteady Gait, Weakness Vital Signs: Vital Signs Temperature 98 F 10/21/16 09:54 Pulse Rate 88 10/21/16 09:54 Respiratory Rate 18 10/21/16 09:54 Blood Pressure 164/76 10/21/16 09:54 O2 Sat by Pulse Oximetry (%) 95 10/20/16 20:49 Constitutional: Yes: No Distress, Calm Neck: Yes: Supple Respiratory: Yes: Regular, CTA Bilaterally Gastrointestinal: Yes: Normal Bowel Sounds, Soft Cardiovascular: Yes: Regular Rate and Rhythm JVD: No Carotid Bruit: No Heart Sounds: Yes: S1, S2 Edema: No - Other Data Labs, Other Data: INR, PTT INR 1.10 (0.82-1.09) 10/19/16 05:35 Tele: NSR EKG: SR @ 76 LAD Echo: Report Reviewed (10/19/2016 Echo: Normal LV size and fxn, possible small round mobile mass or vegetation on anterior leaflet mitral valve, mild TR, tr MR , mod AR, mod ao dilatation) Ejection Fraction %: LVEF > or = 40 % Imaging - Results Chest X-ray: Report Reviewed (NAD) Ultrasound: Report Reviewed (No sig carotid stenosis) Problem List - Problems (1) Acute ischemic stroke Code(s): I63.9 - CEREBRAL INFARCTION, UNSPECIFIED (2) Ataxia following cerebral infarction Code(s): I69.393 - ATAXIA FOLLOWING CEREBRAL INFARCTION (3) Dyslipidemia Code(s): E78.5 - HYPERLIPIDEMIA, UNSPECIFIED (4) HTN (hypertension) Code(s): I10 - ESSENTIAL (PRIMARY) HYPERTENSION Qualifiers: Hypertension type: essential hypertension Qualified Code(s): I10 - Essential (primary) hypertension (5) Hemiparesis affecting right side as late effect of cerebrovascular accident Code(s): I69.351 - HEMIPLGA FOLLOWING CEREBRAL INFRC AFF RIGHT DOMINANT SIDE (6) Hyperlipidemia Code(s): E78.5 - HYPERLIPIDEMIA, UNSPECIFIED Qualifiers: Hyperlipidemia type: pure hypercholesterolemia Qualified Code(s): E78.0 - Pure hypercholesterolemia (7) Cerebral amyloid angiopathy Code(s): E85.4 - ORGAN-LIMITED AMYLOIDOSIS I68.0 - CEREBRAL AMYLOID ANGIOPATHY Assessment/Plan MRI brain shows acute ischemic stroke and few microbleeds.- cerebral amyloidosis. Echocardiogram - Normal LV size and fxn, suspicion for mitral valve mass, vegetation. 1. Acute non-hemorrhagic ischemic stroke 2. R/o MV mass/vegetation 3. Suspicion for cerebal amyloid angiopathy with microbleeds 4. HTN 5. Chol P:1. Continue ASA 81 qd, Lipitor 40 qd, Vasotec 10qd 2. F/u BETO to assess MV pathology 3. PT, OT, speech and swallow, DVT prophylaxis 4. Thank you for consultative opportunity
[2016-10-21] MEDS ORDERED: PROPOFOL 20 ML ONE ×3 (13:07)
[2016-10-21] MEDS ORDERED: LIDOCAINE VISCOUS 2% ORAL/TOP 20 ML UNIT-DOSE CUP MM ONE (13:33)
--- NOTE | 2016-10-21 15:25 | PN ---
Progress Note (short form) - Note Progress Note: MEDICAL ATTENDING ALL NOTES REVIEWED GREATLY APPRECIATE CARDIOLOGY F/U ECHO NOTED POSSIBLE MITRAL VALVE VEGETATION/?LESION BETO REVEALS ONLY CALCIFICATION ON THE MITRAL VALVE VSS/AFEBRILE ANICTERIC/ALERT ORIENTED CHEST CLEAR S1S2 BS+ SOFT NO EDEMA/RIGHT UPPER EXT 2/4 MOTOR LABS/MEDS/IMAGING/NOTES REVIEWED ACUTE NONHEMORRHAGIC LEFT POSTERIOR FRONTAL INFARCT H/O COLON CA IN PAST/NONCOMPLIANT WITH F/U [place] HTN/HLD PLACED ON ASA/STATIN/DVT PROPHYLAXSIS NO LESION OR VEGETATION NOTED ON MITRAL VALVE VIA BETO WILL EVENTUALLY NEED A LOOP RECORDER TO R/O PAF A CAUSE OF CRYPTOGENIC STROKE THIS CAN BE DONE POST REHAB HAVE ASKED [facility] TO ACCEPT CASE TODAY Chris HAQ MD
--- NOTE | 2016-10-21 15:37 | PN ---
Progress Note, Physician History of Present Illness: 76 y/o male pt with a PMH of HTN who presents to the ED yesterday for right sided numbness and weakness since he woke up yesterday morning. Pt. states that he was not experiencing these symptoms before he went to bed last night at approximately 00:00 10/18/16. When he woke up at 07:30, he noticed weakness in his right arm and leg. Pt. denies previous stroke history. He is not on asa, plavix or other blood thinner. Pt. denies dizziness, light headeness, LOC, chest pain, palpitations, SOB. - Current Medication List Current Medications: Active Medications Acetaminophen (Tylenol -) 650 mg PO Q6H PRN PRN Reason: FEVER OR PAIN Aspirin (Ecotrin -) 81 mg PO DAILY [facility] Last Admin: 10/21/16 09:45 Dose: 81 mg Atorvastatin Calcium (Lipitor -) 40 mg PO HS [facility] Last Admin: 10/20/16 21:54 Dose: 40 mg Docusate Sodium (Colace -) 100 mg PO BID [facility] Last Admin: 10/21/16 09:45 Dose: 100 mg Enalapril Maleate (Vasotec -) 10 mg PO DAILY [facility] Last Admin: 10/21/16 09:45 Dose: 10 mg Heparin Sodium (Porcine) (Heparin -) 5,000 unit SQ BID [facility] Last Admin: 10/20/16 21:54 Dose: 5,000 unit Ondansetron HCl (Zofran Injection) 4 mg IVPB Q6H PRN PRN Reason: NAUSEA - Objective Vital Signs: Vital Signs Temperature 98.4 F 10/21/16 14:28 Pulse Rate 81 10/21/16 14:28 Respiratory Rate 18 10/21/16 14:28 Blood Pressure 119/67 10/21/16 14:28 O2 Sat by Pulse Oximetry (%) 96 10/21/16 14:28 Constitutional: Yes: No Distress, Calm Eyes: Yes: WNL, Conjunctiva Clear, EOM Intact HENT: Yes: WNL, Atraumatic, Normocephalic Neck: Yes: WNL, Supple, Trachea Midline Cardiovascular: Yes: WNL, Regular Rate and Rhythm, S1, S2 Respiratory: Yes: WNL, Regular, CTA Bilaterally Gastrointestinal: Yes: WNL, Normal Bowel Sounds, Soft Genitourinary: Yes: WNL Edema: Yes Edema: LLE: 1+, RLE: 1+ Peripheral Pulses WNL: Yes Peripheral Pulses: Left Radial: 1+, Right Radial: 1+ Neurological: Yes: Alert, Oriented ...Motor Strength: RUE (RUE 2/5, RLE 4/5 LUE 5/5, LLE 5/5 ataxia RUE , ataxia RLE, + dysarthria. NIHS is 6p.) Psychiatric: Yes: Alert, Oriented Labs: INR, PTT INR 1.10 (0.82-1.09) 10/19/16 05:35 - ....Imaging Cat Scan: Report Reviewed, Image Reviewed Ultrasound: Report Reviewed, Image Reviewed MRI: Report Reviewed, Image Reviewed EKG: Report Reviewed, Image Reviewed Other: Report Reviewed, Image Reviewed Problem List - Problems (1) Acute ischemic stroke Code(s): I63.9 - CEREBRAL INFARCTION, UNSPECIFIED (2) Hemiparesis affecting dominant side as late effect of cerebrovascular accident Code(s): I69.359 - HEMIPLGA FOLLOWING CEREBRAL INFARCTION AFFECTING UNSP SIDE (3) Hemiparesis affecting right side as late effect of cerebrovascular accident Code(s): I69.351 - HEMIPLGA FOLLOWING CEREBRAL INFRC AFF RIGHT DOMINANT SIDE (4) Hemiparesis, acute Code(s): G81.90 - HEMIPLEGIA, UNSPECIFIED AFFECTING UNSPECIFIED SIDE (5) Ataxia following cerebral infarction Code(s): I69.393 - ATAXIA FOLLOWING CEREBRAL INFARCTION (6) 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 Pt. states that he was not experiencing these symptoms before he went to bed last night at approximately 00:00 10/18/16. When he woke up at 07:30, he noticed weakness in his right arm and leg. Pt. denies previous stroke history. He is not on asa, plavix or other blood thinner. Pt. denies dizziness, light headeness, LOC, chest pain, palpitations, SOB. MRI brain shows acute ischemic stroke and few microbleeds.- cerebral amyloidosis. Echocardiogram - suspicion mitral valve mass, vegetation. Impression: acute ischemic stroke. Plan: - the patient was not a candidate for ivtpa as he was outside of the window. He woke up with the symptoms. LSN was the night before. He was not taking asa daily. - ASA , statin, blood pressure permissive 150-180mmHG. for three days. - stroke work up : doppler carotids, lipids profile, echocardiogram, TSH, HBA1C. - BETO is negative for suspicious mass /vegetation on the mitral valve seen on the echocardiogram - he was started on ASA. As there are few small microbleeds read by radiologist on MRI brain ( which seems to be same or less than on the previous MRI ) , suggestive of cerebral amyloidosis we continue baby ASA 81mg. po daily and repeat MRI brain in two months. -PT/OT/ST - DVT prophylaxis- heparin or lovenox sq. - the patient can be discharged to Inpatient Rehab. Claudio. Follow up in 5 weeks in the Neurology Office. Thank you for this kind referral.
--- NOTE | 2016-10-21 16:50 | PN ---
Progress Note (short form) - Note Progress Note: MEDICAL ATTENDING DISCHARGE ORDER/MEDS DONE FOR 10/22/16 Chris HAQ MD
[2016-10-21] MEDS: HEPARIN NA (PORCINE) 5,000 UNITS/ML 1ML VIAL SQ SCH ×2 (17:09→21:35)
--- NOTE | 2016-10-21 17:55 | PN ---
Progress Note (short form) - Note Progress Note: Patient seen. Events noted Acute Left cerebral CVA with right hemiparesis. Upper extremity weaker than right . No GI complaints. No recent GIwork up. Previously treated with adjuvant chemotherapy for colon ca and lost to f/u since 2011. Plan for [facility].
[2016-10-21] MEDS: ATORVASTATIN CA 40 MG TABLET (FP) PO SCH (21:35)
--- NOTE | 2016-10-22 09:09 | HOSP ---
Subjective - Review of Symptoms Events since last encounter: called by nurse that pt fell. Subjective: Pt states that when he was going from commode to chair, his right leg gave out and was twisted under him. C/o pain to right knee at times of fall, but feeling much better now. NO hip or back pain. Denies hitting his head. Musculoskeletal: Yes: Other (right knee with slight pain) Neurological: Yes: Weakness (right sided) Physical Examination Vital Signs: Vital Signs Temperature 98.5 F 10/22/16 05:00 Pulse Rate 77 10/22/16 05:00 Respiratory Rate 16 10/22/16 05:00 Blood Pressure 157/89 10/22/16 05:00 O2 Sat by Pulse Oximetry (%) 98 10/21/16 20:09 Constitutional: Yes: Well Nourished, Calm HENT: Yes: Atraumatic, Normocephalic Cardiovascular: Yes: Regular Rate and Rhythm. No: Murmur, Rub Respiratory: Yes: CTA Bilaterally Gastrointestinal: Yes: Normal Bowel Sounds, Soft Musculoskeletal: Yes: Other (No pain on ROM shoulders, elbows, hips, knees, ankles. No swelling or ecchymosis noted to right knee; no pain on palpation. NO pain on palpation of head, spine.) Hospitalist Encounter Assessment: s/p fall - No injury, full ROM, no xray ordered - ok for discharge to [place] today. Primary Physician Notified: Tonny Juan)
[2016-10-22] MEDS: ENALAPRIL MALEATE 10 MG TABLET (FP) PO SCH (09:13)
[2016-10-22] MEDS: ASPIRIN COATED 81 MG TABLET.EC PO SCH (09:13)
[2016-10-22] MEDS: HEPARIN NA (PORCINE) 5,000 UNITS/ML 1ML VIAL SQ SCH (09:13)
[2016-10-22] MEDS: DOCUSATE SODIUM 100 MG CAPSULE (FP) PO SCH (09:14)
[2016-10-22 10:06] VITALS: BP 140/96; PULSE 88; TEMP 98
== END 2016-10-22 11:18 | DRG 65 ==
LOC: JER 12:45 → JERBED 15:23 → J4W 17:10 → OBSVTOIN 10-19 08:48
PROVIDERS: ADMIT Specialist; ATTEND Specialist
PROC: B246ZZ4 Ultrasonography of Right and Left Heart, Transesophageal (ICD-10-PCS; principal; 2016-10-21 13:00)
DX: I63.9 Cerebral infarction, unspecified (principal); G81.91 Hemiplegia, unspecified affecting right dominant side; E85.4 Organ-limited amyloidosis; I10 Essential (primary) hypertension; E78.5 Hyperlipidemia, unspecified; Z85.038 Personal history of other malignant neoplasm of large intestine; R29.701 NIHSS score 1; R27.0 Ataxia, unspecified; Z91.19 Patient's noncompliance with other medical treatment and regimen; I68.0 Cerebral amyloid angiopathy; M25.561 Pain in right knee; W19.XXXA Unspecified fall, initial encounter; Y93.89 Activity, other specified; Y92.230 Patient room in hospital as the place of occurrence of the external cause; Y99.8 Other external cause status
CPT/HCPCS: 36415; 70450-TC; 70551-TC; 71010-TC; 80053; 80061; 81003; 82378; 82550; 83036; 83721; 83735; 84443; 84484; 85025; 85610; 85730; 86850; 86900; 86901; 93005; 93010; 93306-TC; 93312; 93325; 93880-TC; 97116-GP; 97162-PG; 99285-25; G0378; J1644

== ENCOUNTER 2022-06-10 11:22 | Emergency (ER) | payer OTHER, BC ==
[2022-06-10 11:34] VITALS: BP 142/72; PULSE 80; RESP 18; TEMP 97.7; BMI 27.3
[2022-06-10 12:53] LABS: BASO % 0.4 % (0-2.0); EOS % 0.1 % (0-4.5); HEMATOCRIT 41.1 % (35.4-49); HEMOGLOBIN 13.4 GM/dL (11.7-16.9); LYMPH % 6.3 % (8-40); MCH 30.5 pg (25.7-33.7); MCHC 32.7 g/dl (32.0-35.9); MEAN CELL VOLUME 93.3 fl (80-96); MEAN PLT VOLUME 9.3 fl (7.5-11.1); MONO % 8.4 % (3.8-10.2); NEUT % 84.8 % (42.8-82.8); PLATELET COUNT 170 10^3/uL (134-434); RBC 4.41 M/mm3 (4.00-5.60); RDW 13.3 % (11.9-15.9); WHITE BLOOD COUNT 11.9 K/mm3 (4.0-10.0)
[2022-06-10 13:10] LABS: ALBUMIN 3.8 g/dl (3.4-5.0); BLOOD UREA NITROGEN 18.6 mg/dL (7-18); CALCIUM 9.1 mg/dL (8.5-10.1); MAGNESIUM 2.1 mg/dL (1.8-2.4)
[2022-06-10 13:14] LABS: CREATININE 1.2 mg/dL (0.55-1.3)
[2022-06-10 13:15] LABS: BILIRUBIN,TOTAL 2.2 mg/dL (0.2-1); TOT PROT 7.2 g/dl (6.4-8.2)
[2022-06-10] MEDS ORDERED: morphine CARPU-JECT 4 MG/1 ML DISP.SYRIN IVPUSH ONE (15:13)
[2022-06-10] MEDS ORDERED: morphine SULFATE 4 MG/ML VIAL ONE (15:24)
== END 2022-06-10 19:00 | disposition home or self-care (01) ==
LOC: JER 11:22
PROC: 3E033NZ Introduction of Analgesics, Hypnotics, Sedatives into Peripheral Vein, Percutaneous Approach (ICD-10-PCS; principal; 2022-06-10)
DX: S42.202A Unspecified fracture of upper end of left humerus, initial encounter for closed fracture (principal)
CPT/HCPCS: 36415; 70450-TC; 71045-TC-FY; 72170-TC-FY; 73030-TC-LT-FY; 73110-TC-LT-FY; 73130-TC-LT-FY; 73200-TC-RT; 80053; 83735; 84484; 85025; 93005; 93010; 99285-25

== ENCOUNTER 2022-10-26 10:02 | Inpatient (IN) | payer OTHER, BC ==
[2022-10-26 13:37] LABS: BASO % 0.4 % (0-2.0); EOS % 3.2 % (0-4.5); HEMATOCRIT 39.4 % (35.4-49); HEMOGLOBIN 12.9 GM/dL (11.7-16.9); LYMPH % 13.9 % (8-40); MCH 29.8 pg (25.7-33.7); MCHC 32.6 g/dl (32.0-35.9); MEAN CELL VOLUME 91.3 fl (80-96); MEAN PLT VOLUME 9.2 fl (7.5-11.1); MONO % 9.4 % (3.8-10.2); NEUT % 73.1 % (42.8-82.8); PLATELET COUNT 169 10^3/uL (134-434); RBC 4.32 M/mm3 (4.00-5.60); WHITE BLOOD COUNT 8.7 K/mm3 (4.0-10.0)
[2022-10-26] MEDS ORDERED: DEXTROSE 5% IVPB ONE (13:39)
[2022-10-26] MEDS ORDERED: WATER IVPB ONE (13:39)
[2022-10-26] MEDS ORDERED: CEFTRIAXONE IVPB ONE (13:39)
[2022-10-26 13:51] LABS: INR 1.13 (0.83-1.09); PROTHROMBIN TIME (PATIENT) 13.1 SEC (9.7-13.0)
[2022-10-26 14:02] LABS: CALCIUM 9.3 mg/dL (8.5-10.1)
[2022-10-26 14:03] LABS: ALBUMIN 3.5 g/dl (3.4-5.0); BLOOD UREA NITROGEN 33.4 mg/dL (7-18)
[2022-10-26 14:06] LABS: CREATININE 1.9 mg/dL (0.55-1.3)
[2022-10-26 14:08] LABS: TOT PROT 6.7 g/dl (6.4-8.2)
[2022-10-26 14:09] LABS: EPI CELLS 2 /uL (0-25.1); HYALINE CASTS 1 /uL (0-3.1); URINE APPEARANCE CLOUDY; URINE BACTERIA 4 /uL (0-1359); URINE BILIRUBIN 2+ (NEGATIVE); URINE COLOR ORANGE; URINE GLUCOSE (UA) NEGATIVE (NEGATIVE); URINE KETONE NEGATIVE (NEGATIVE); URINE LEUK ESTERASE 2+ (NEGATIVE); URINE NITRITE NEGATIVE (NEGATIVE); URINE PROTEIN 4+ (NEGATIVE); URINE WBC 1840 /uL (0-25.8)
[2022-10-26 14:19] LABS: URINE RBC 754 /uL (0-23.9)
[2022-10-26] MEDS ORDERED: CEFTRIAXONE 1 GM/50 ML BAG ONE (14:20)
[2022-10-26] MEDS ORDERED: LACTATED RINGERS SOLUTION 1,000 ML/1,000 ML INFUS.BAG IV STA (14:31)
[2022-10-26] MEDS ORDERED: ACETAMINOPHEN 325 MG TABLET (FP) PO PRN (15:29)
[2022-10-26 21:39] VITALS: BMI 24.8
[2022-10-26] MEDS ORDERED: ATORVASTATIN CA 10 MG TABLET (FP) PO SCH (22:00)
[2022-10-27 07:37] LABS: CALCIUM 8.6 mg/dL (8.5-10.1)
[2022-10-27 07:38] LABS: BLOOD UREA NITROGEN 24.9 mg/dL (7-18)
[2022-10-27 07:41] LABS: CREATININE 1.1 mg/dL (0.55-1.3)
[2022-10-27 07:43] LABS: BILIRUBIN,TOTAL 1.2 mg/dL (0.2-1); IRON SERUM 33 ug/dL (50-175)
[2022-10-27 07:44] LABS: TOTAL IRON BINDING CAPACITY 267 ug/dL (250-450)
[2022-10-27 07:46] LABS: HEMATOCRIT 36.3 % (35.4-49); MCH 30.2 pg (25.7-33.7); MEAN CELL VOLUME 91.5 fl (80-96); MEAN PLT VOLUME 9.5 fl (7.5-11.1); PLATELET COUNT 146 10^3/uL (134-434); RBC 3.96 M/mm3 (4.00-5.60); WHITE BLOOD COUNT 8.8 K/mm3 (4.0-10.0)
[2022-10-27] MEDS ORDERED: ENALAPRIL MALEATE 10 MG TABLET PO SCH (10:00)
[2022-10-27] MEDS ORDERED: SERTRALINE HCL 50 MG TABLET (FP) PO SCH (10:00)
[2022-10-27] MEDS ORDERED: PROPOFOL 20 ML ONE (12:55)
[2022-10-27] MEDS ORDERED: MIDAZOLAM HCL 2 MG/2 ML SINGLE DOSE VIAL ONE (12:55)
[2022-10-27] MEDS ORDERED: ceFAZolin SODIUM 1 GM VIAL ONE (13:19)
[2022-10-27] MEDS ORDERED: ceFAZolin SODIUM 1 GM VIAL IVPB ONE (13:22)
[2022-10-27] MEDS ORDERED: DEXAMETHASONE SOD PHOSPHATE 4 MG/1 ML VIAL ONE (13:25)
[2022-10-27] MEDS ORDERED: ONDANSETRON 4 MG/2 ML VIAL ONE (13:25)
[2022-10-27] MEDS ORDERED: ACETAMINOPHEN 325 MG TABLET (FP) PO PRN (14:04)
[2022-10-27] MEDS ORDERED: PROMETHAZINE HCL 25 MG/1 ML VIAL IVPB PRN (14:26)
[2022-10-27] MEDS ORDERED: ONDANSETRON 4 MG/2 ML VIAL IVPUSH PRN (14:26)
[2022-10-27] MEDS: CEFTRIAXONE 1 GM in DEXTROSE 5%-WATER - 50 ML IVPB SCH (22:40)
[2022-10-27] MEDS: ATORVASTATIN CA 10 MG TABLET (FP) PO SCH (22:41)
[2022-10-28] MEDS ORDERED: CEFTRIAXONE 1 GM in DEXTROSE 5%-WATER - 50 ML IVPB SCH (10:00)
[2022-10-28] MEDS: ENALAPRIL MALEATE 10 MG TABLET PO SCH (10:33)
[2022-10-28] MEDS: SERTRALINE HCL 50 MG TABLET (FP) PO SCH (10:33)
[2022-10-28] MEDS: ATORVASTATIN CA 10 MG TABLET (FP) PO SCH (21:41)
[2022-10-28] MEDS: LACTATED RINGERS SOLUTION 1,000 ML IV SCH (21:41)
[2022-10-28] MEDS: CEFTRIAXONE 1 GM in DEXTROSE 5%-WATER - 50 ML IVPB SCH (21:41)
[2022-10-29 04:35] VITALS: RESP 18
[2022-10-29] MEDS: ENALAPRIL MALEATE 10 MG TABLET PO SCH (09:55)
[2022-10-29] MEDS: LACTATED RINGERS SOLUTION 1,000 ML IV SCH (09:55)
[2022-10-29] MEDS: SERTRALINE HCL 50 MG TABLET (FP) PO SCH (09:55)
[2022-10-29 10:00] VITALS: BP 138/63; PULSE 73; TEMP 98.2
== END 2022-10-29 12:32 | DRG 713 ==
LOC: JER 10:02 → JERBED 14:57 → J7W 19:05
PROVIDERS: ADMIT Family Medicine; ATTEND Family Medicine
PROC: 0V508ZZ Destruction of Prostate, Via Natural or Artificial Opening Endoscopic (ICD-10-PCS; principal; 2022-10-27 13:00)
DX: N42.1 Congestion and hemorrhage of prostate (principal); I69.351 Hemiplegia and hemiparesis following cerebral infarction affecting right dominant side; J98.11 Atelectasis; N17.9 Acute kidney failure, unspecified; K40.90 Unilateral inguinal hernia, without obstruction or gangrene, not specified as recurrent; S00.211A Abrasion of right eyelid and periocular area, initial encounter; E78.5 Hyperlipidemia, unspecified; I10 Essential (primary) hypertension; Z85.038 Personal history of other malignant neoplasm of large intestine; W18.30XA Fall on same level, unspecified, initial encounter; Y92.230 Patient room in hospital as the place of occurrence of the external cause
CPT/HCPCS: 36415; 70450-TC; 71045-TC-FY; 74176-TC; 80053; 81003; 83540; 83550; 85025; 85027; 85610; 87086; 94760; 99285-25; C9803-CS; U0003; U0005

== ENCOUNTER 2023-01-21 22:06 | Emergency (ER) | payer OTHER, BC ==
[2023-01-21 22:16] VITALS: BP 119/65; PULSE 91; RESP 18; TEMP 97.9; BMI 24.3
[2023-01-21 23:51] LABS: BASO % 0.5 % (0-2.0); EOS % 2.5 % (0-4.5); HEMATOCRIT 38.6 % (35.4-49); HEMOGLOBIN 12.8 GM/dL (11.7-16.9); LYMPH % 7.1 % (8-40); MCHC 33.1 g/dl (32.0-35.9); MEAN CELL VOLUME 87.5 fl (80-96); MEAN PLT VOLUME 8.2 fl (7.5-11.1); MONO % 7.2 % (3.8-10.2); NEUT % 82.7 % (42.8-82.8); PLATELET COUNT 194 10^3/uL (134-434); RBC 4.42 M/mm3 (4.00-5.60); RDW 13.7 % (11.9-15.9); WHITE BLOOD COUNT 13.8 K/mm3 (4.0-10.0)
[2023-01-22 00:09] LABS: POTASSIUM 4.1 mmol/L (3.5-5.1)
[2023-01-22 00:11] LABS: CALCIUM 8.9 mg/dL (8.5-10.1)
[2023-01-22 00:12] LABS: ALBUMIN 3.2 g/dl (3.4-5.0); BLOOD UREA NITROGEN 25.5 mg/dL (7-18)
[2023-01-22 00:15] LABS: CREATININE 1.4 mg/dL (0.55-1.3)
[2023-01-22 00:16] LABS: BILIRUBIN,TOTAL 0.6 mg/dL (0.2-1); TOT PROT 7.2 g/dl (6.4-8.2)
[2023-01-22 00:32] LABS: EPI CELLS 4 /uL (0-25.1); HYALINE CASTS 0 /uL (0-3.1); PH,URINE 5.5 (5.0-8.0); URINE APPEARANCE TURBID; URINE BACTERIA >9,000 /uL (0-1359); URINE BILIRUBIN NEGATIVE (NEGATIVE); URINE COLOR DK YELLOW; URINE GLUCOSE (UA) NEGATIVE (NEGATIVE); URINE KETONE TRACE (NEGATIVE); URINE LEUK ESTERASE 3+ (NEGATIVE); URINE NITRITE POSITIVE (NEGATIVE); URINE PROTEIN 3+ (NEGATIVE); URINE UROBILINOGEN 0.2 mg/dL (0.2-1.0); URINE WBC 16443 /uL (0-25.8)
[2023-01-22] MEDS ORDERED: CEFTRIAXONE 1 GM in DEXTROSE 5%-WATER - 50 ML IVPB ONE (01:04)
[2023-01-22] MEDS ORDERED: CEFTRIAXONE 1 GM/50 ML BAG ONE (01:16)
[2023-01-22 04:15] LABS: URINE RBC 786 /uL (0-23.9); YEAST NONE SEEN (NEGATIVE)
== END 2023-01-22 02:02 | disposition home or self-care (01) ==
LOC: JER 22:06
PROC: 0T9B70Z Drainage of Bladder with Drainage Device, Via Natural or Artificial Opening (ICD-10-PCS; 2023-01-21)
PROC: 3E03329 Introduction of Other Anti-infective into Peripheral Vein, Percutaneous Approach (ICD-10-PCS; principal; 2023-01-22)
DX: R10.30 Lower abdominal pain, unspecified (principal); T83.9XXA Unspecified complication of genitourinary prosthetic device, implant and graft, initial encounter; N30.00 Acute cystitis without hematuria
CPT/HCPCS: 36415; 80053; 81003; 85025; 87086; 87186; 99284-25

== ENCOUNTER 2023-01-31 20:02 | Emergency (ER) | payer OTHER, BC ==
[2023-01-31 20:10] VITALS: BP 106/56; PULSE 78; RESP 22; TEMP 97.9; BMI 24.3
== END 2023-01-31 22:00 | disposition home or self-care (01) ==
LOC: JERFT 20:02 → JER 20:02
PROC: 0T9B70Z Drainage of Bladder with Drainage Device, Via Natural or Artificial Opening (ICD-10-PCS; principal; 2023-01-31)
DX: T83.028A Displacement of other urinary catheter, initial encounter (principal); K40.90 Unilateral inguinal hernia, without obstruction or gangrene, not specified as recurrent; Y84.6 Urinary catheterization as the cause of abnormal reaction of the patient, or of later complication, without mention of misadventure at the time of the procedure
CPT/HCPCS: 99283-25

== ENCOUNTER 2023-02-27 10:37 | Day surgery (SDC) | payer OTHER, BC ==
[2023-02-22 09:38] VITALS: BMI 24.3
[2023-02-27] MEDS ORDERED: LIDOCAINE HCL/PF 2% SDV 5ML VIAL ONE (11:44)
[2023-02-27 12:41] VITALS: RESP 16; TEMP 97.4
[2023-02-27 12:46] VITALS: BP 110/74; PULSE 71
== END 2023-02-27 12:47 | disposition home or self-care (01) ==
LOC: FASU-ENDO 10:37
PROVIDERS: ATTEND Internal Medicine Gastroenterology
PROC: 0DBN8ZX Excision of Sigmoid Colon, Via Natural or Artificial Opening Endoscopic, Diagnostic (ICD-10-PCS; 2023-02-27)
PROC: 0DBP8ZX Excision of Rectum, Via Natural or Artificial Opening Endoscopic, Diagnostic (ICD-10-PCS; principal; 2023-02-27 11:47)
DX: Z12.11 Encounter for screening for malignant neoplasm of colon (principal); K63.89 Other specified diseases of intestine; Z98.0 Intestinal bypass and anastomosis status; Z85.038 Personal history of other malignant neoplasm of large intestine
CPT/HCPCS: 88305-TC

== ENCOUNTER 2023-03-07 10:57 | Emergency (ER) | payer OTHER, BC ==
[2023-03-07 11:05] VITALS: TEMP 98.1; BMI 24.3
[2023-03-07 13:14] LABS: BASO % 0.4 % (0-2.0); EOS % 2.3 % (0-4.5); HEMATOCRIT 40.3 % (35.4-49); HEMOGLOBIN 12.9 GM/dL (11.7-16.9); LYMPH % 12.9 % (8-40); MCH 28.6 pg (25.7-33.7); MEAN CELL VOLUME 89.3 fl (80-96); MEAN PLT VOLUME 9.7 fl (7.5-11.1); MONO % 7.6 % (3.8-10.2); NEUT % 76.8 % (42.8-82.8); PLATELET COUNT 170 10^3/uL (134-434); RBC 4.51 M/mm3 (4.00-5.60); RDW 15.2 % (11.9-15.9); WHITE BLOOD COUNT 8.9 K/mm3 (4.0-10.0)
[2023-03-07 13:18] LABS: EPI CELLS 8 /uL (0-25.1); HYALINE CASTS 2 /uL (0-3.1); PH,URINE 5.5 (5.0-8.0); URINE APPEARANCE TURBID; URINE BACTERIA 4410 /uL (0-1359); URINE BILIRUBIN NEGATIVE (NEGATIVE); URINE COLOR DK YELLOW; URINE GLUCOSE (UA) NEGATIVE (NEGATIVE); URINE KETONE NEGATIVE (NEGATIVE); URINE LEUK ESTERASE 3+ (NEGATIVE); URINE NITRITE POSITIVE (NEGATIVE); URINE PROTEIN 2+ (NEGATIVE); URINE UROBILINOGEN 0.2 mg/dL (0.2-1.0); URINE WBC 24459 /uL (0-25.8)
[2023-03-07 13:33] LABS: POTASSIUM 3.9 mmol/L (3.5-5.1)
[2023-03-07] MEDS ORDERED: CEFTRIAXONE 1 GM/50 ML BAG ONE (13:33)
[2023-03-07 13:35] LABS: ALBUMIN 3.4 g/dl (3.4-5.0); BLOOD UREA NITROGEN 15.9 mg/dL (7-18); CALCIUM 9.5 mg/dL (8.5-10.1)
[2023-03-07 13:39] LABS: CREATININE 1.1 mg/dL (0.55-1.3)
[2023-03-07 13:40] LABS: BILIRUBIN,TOTAL 0.8 mg/dL (0.2-1); TOT PROT 6.8 g/dl (6.4-8.2)
[2023-03-07 13:51] LABS: URINE RBC 345.5 /uL (0-23.9); YEAST NEGATIVE (NEGATIVE)
[2023-03-07 14:23] VITALS: BP 128/70; PULSE 70; RESP 18
== END 2023-03-07 14:23 | disposition home or self-care (01) ==
LOC: JER 10:57
PROC: 0T9B70Z Drainage of Bladder with Drainage Device, Via Natural or Artificial Opening (ICD-10-PCS; principal; 2023-03-07)
PROC: 3E033NZ Introduction of Analgesics, Hypnotics, Sedatives into Peripheral Vein, Percutaneous Approach (ICD-10-PCS; 2023-03-07)
DX: N39.0 Urinary tract infection, site not specified (principal); R33.9 Retention of urine, unspecified
CPT/HCPCS: 36415; 80053; 81003; 85025; 87086; 87186; 99284-25

== ENCOUNTER 2023-11-27 18:03 | Emergency (ER) | payer OTHER, BC ==
[2023-11-27 18:26] VITALS: BMI 27.3
[2023-11-27 22:13] LABS: EPI CELLS 5 /uL (0-25.1); HYALINE CASTS 0 /uL (0-3.1); URINE APPEARANCE CLEAR; URINE BACTERIA 67 /uL (0-1359); URINE BILIRUBIN NEGATIVE (NEGATIVE); URINE COLOR YELLOW; URINE GLUCOSE (UA) NEGATIVE (NEGATIVE); URINE KETONE NEGATIVE (NEGATIVE); URINE LEUK ESTERASE 1+ (NEGATIVE); URINE NITRITE NEGATIVE (NEGATIVE); URINE PROTEIN 1+ (NEGATIVE); URINE RBC 88 /uL (0-23.9); URINE UROBILINOGEN 0.2 mg/dL (0.2-1.0); URINE WBC 110 /uL (0-25.8)
[2023-11-27] MEDS ORDERED: SULFAMETHOXAZOLE/TRIMETHOPRIM 800MG/160MG D.S. TABLET ONE (22:23)
[2023-11-27] MEDS: SULFAMETHOXAZOLE/TRIMETHOPRIM 800MG/160MG D.S. TABLET PO ONE (22:33)
[2023-11-27 22:34] VITALS: BP 122/78; PULSE 82; RESP 19; TEMP 97.9
== END 2023-11-27 22:34 | disposition home or self-care (01) ==
LOC: JER 18:03
PROC: 0T9B70Z Drainage of Bladder with Drainage Device, Via Natural or Artificial Opening (ICD-10-PCS; principal; 2023-11-27)
DX: T83.511A Infection and inflammatory reaction due to indwelling urethral catheter, initial encounter (principal); R31.0 Gross hematuria
CPT/HCPCS: 81003; 87086; 99283-25